=== PATIENT | female | born 1980 | race Two or more races ===

== ENCOUNTER 2019-05-22 12:47 | Emergency (ER) | payer OTHER ==
[~2019-05-22] VITALS: Ht 160 cm; Wt 59.0 kg
[2019-05-22 13:25] VITALS: BP 110/73
[2019-05-22] MEDS ORDERED: cefTRIAXone SOD 1,000 MG VL IM ONE (13:45)
== END 2019-05-22 14:14 | disposition home or self-care (01) ==
LOC: ER 12:47
DX: K04.7 Periapical abscess without sinus (principal)
CPT/HCPCS: 96372; 99283; J0696